=== PATIENT | female | born 1990 | race Caucasian/White ===

== ENCOUNTER 2018-01-24 21:53 | Emergency (ER) | payer SELFPAY ==
[~2018-01-24] VITALS: Ht 157.5 cm; Wt 81.8 kg
[2018-01-24 21:57] VITALS: Ht 157.5 cm; Wt 81.8 kg
[2018-01-24] MEDS ORDERED: TYLENOL W/CODEI1 TAB PO (23:28)
[2018-01-24 23:45] VITALS: BP 130/76
== END 2018-01-24 23:46 | disposition home or self-care (01) ==
LOC: D.ER 21:53
DX: S71.112A Laceration without foreign body, left thigh, initial encounter (principal); W19.XXXA Unspecified fall, initial encounter; Y93.89 Activity, other specified; Y92.017 Garden or yard in single-family (private) house as the place of occurrence of the external cause; M25.562 Pain in left knee